=== PATIENT | female | born 1970 | race Caucasian/White ===

== ENCOUNTER 2020-01-03 17:04 | Emergency (ER) | payer BC, SELFPAY ==
--- NOTE | ~2020-01-03 | XR_ITS ---
EXAMINATION: XR foot RT min 3V DATE: 01/03/2020 17:23 INDICATION: Right foot pain TECHNIQUE: Dorsoplantar, lateral, and 2 oblique views of the right foot were obtained. COMPARISON: None. FINDINGS: There is no fracture, dislocation, or subluxation. Soft tissue swelling is seen in the late ral foot extending into the fifth toe. The joint spaces are normal. Dorsal and plantar calcaneal enth esophytes are noted. IMPRESSION: 1. Lateral soft tissue swelling of the foot without acute osseous abnormality. Reviewed, dictated and finalized at location A. LANCE ARTIST
[2020-01-03 17:10] VITALS: BP 144/78; PULSE 86; RESP 16; TEMP 37.1; O2SAT 99
--- NOTE | 2020-01-03 17:11 | ED.GENADULT ---
HPI - General Adult General Chief complaint: Extremity Injury, Lower Stated complaint: INJURED R FOOT Time Seen by Provider: 01/03/20 17:12 Source: patient Mode of arrival: ambulatory Limitations: no limitations History of Present Illness HPI narrative: 49-year-old female patient presents to the [facility] with complaints of right foot pain. Patient states earlier today she was camping and states that her stairs at her camper on one of her doors was not out and went to go out the door and fell about 2-1/2 to 3 feet from the camper onto the ground. Patient states she is having lateral right side of foot pain. Patient states she did soak it in some Epson salts as well as taking Advil prior to arrival. Related Data Home Medications Medication Instructions Recorded Confirmed ascorbic acid (vitamin C) 1,000 mg 1 gm PO DAILY 09/23/19 11/30/19 tablet calcium carbonate 600 mg calcium 600 mg PO DAILY 09/23/19 11/30/19 (1,500 mg) tablet cetirizine 10 mg capsule 10 mg PO DAILY 09/23/19 11/30/19 cholecalciferol (vitamin D3) 125 125 mcg PO DAILY 09/23/19 11/30/19 mcg (5,000 unit) capsule omega-3 fatty acids-fish oil 360 1 cap PO DAILY 09/23/19 11/30/19 mg-1,200 mg capsule Allergies Allergy/AdvReac Type Severity Reaction Status Date / Time No Known Allergies Allergy Verified 01/03/20 17:11 Review of Systems Review of Systems: Narrative: CONSTITUTIONAL: Denies fever, chills, or sweats. EYES: Denies visual changes, redness, or discharge. ENT: Denies rhinorrhea, congestion, sore throat, or otalgia. CARDIOVASCULAR: Denies chest pain, palpitations, or edema. RESPIRATORY: Denies cough or dyspnea. GASTROINTESTINAL: Denies abdominal pain, nausea, vomiting, or diarrhea. GENITOURINARY: Denies dysuria or hematuria. SKIN: Denies rash or itching. MUSCULOSKELETAL: Denies back pain, joint pain, or myalgia. Positive right foot pain NEUROLOGIC: Denies headache, numbness, or weakness. PSYCHIATRIC: Denies anxiety or depression. [facility] Past Medical History Medical History Hyperlipidemia with target LDL less than 160 Seborrheic dermatitis of scalp Surgical History Surgical History History of endometrial ablation Family History Family History Grandparent Diabetes mellitus Depression Hypertension Family history of cardiovascular disease Cerebrovascular accident Malignant neoplasm of prostate Family history of malignant neoplasm of uterus Father Hypertension Other Family history of thyroid disease Social History Social History Smoking status: Never smoker Alcohol intake: current Comments At the time of my signature I agree with nursing past medical history, surgical, social, and family history. There is no relevant family history pertinent to the presenting complaint. Exam Narrative: Exam Narrative: GENERAL: Well-appearing, well-nourished, and in no acute distress. HEAD: Normocephalic, atraumatic. EYES: PERRLA and EOMI. ENT: Nares clear, no rhinorrhea or epistaxis. Mucous membranes moist. NECK: Supple. No lymphadenopathy CHEST: Clear to auscultation. No respiratory distress. HEART: Regular rate and rhythm. No murmur heard. Normal peripheral pulses. ABDOMEN: Soft, nontender, nondistended, normal active bowel sounds. EXTREMITIES: Patient unable to bear weight and has pain with ambulation of the right foot. Right foot does have some swelling around the lateral malleolus area with tenderness noted to this area.. The R foot is without obvious asymmetry or deformity when compared to the L foot. No bony step-off, nontender to palpation over the toes, midfoot or hindfoot or sole. Normal plantar/dorsiflexion, inversion/eversion. Distal motor and neurovascular status are intact SKIN: Warm, dry, no rash. MAT
== END 2020-01-03 17:43 | disposition home or self-care (01) ==
PROVIDERS: Emergency Provider Nurse Practitioner Family; PCP Family Medicine
DX: S93.401A Sprain of unspecified ligament of right ankle, initial encounter (principal); W17.89XA Other fall from one level to another, initial encounter; E78.5 Hyperlipidemia, unspecified
CPT/HCPCS: 73630; 99213; G0463

== ENCOUNTER 2020-12-19 00:05 | Day surgery (SDC) | payer BC, SELFPAY ==
[2020-12-05 13:41] VITALS: BMI 32.5
[2020-12-19 10:18] VITALS: BP 126/75; PULSE 76; RESP 18; TEMP 36.8; O2SAT 100
--- NOTE | 2020-12-19 10:27 | P.CONGI_ITS ---
Assessment and Plan Assessment and plan (1) Colon cancer screening: Code(s): Z12.11 - Encounter for screening for malignant neoplasm of colon Status: Acute Assessment and Plan: Patient presents for screening colonoscopy. Further recommendations will be given after endoscopy. GI Consult Note Consult date/time: 12/19/20 10:27 HPI: Keisha Dent is a 50 year old female Presents for screening colonoscopy. Patient states her current weight appetite and bowel movements are normal. She denies abdominal pain. She has had no bleeding. Family history is noncontributory. Patient presents today for neoplasia screening colonoscopy. Review of Systems Review of Systems: All systems reviewed & are unremarkable except as noted in HPI and below PMFSH Past Medical History Medical History Hyperlipidemia with target LDL less than 160 Seborrheic dermatitis of scalp Surgical History Surgical History History of endometrial ablation Family History Family History Grandparent Diabetes mellitus Depression Hypertension Family history of cardiovascular disease Cerebrovascular accident Malignant neoplasm of prostate Family history of malignant neoplasm of uterus Father Hypertension Other Family history of thyroid disease Social History Social History Smoking status: Never smoker Alcohol intake: current Alcohol use details: socially Substance use: never Substance use type: does not use Living arrangements: with family Spiritual care concerns: No Meds Home Medications and Allergies Home Medications Medication Instructions Recorded Confirmed Type ascorbic acid (vitamin C) 1,000 mg 1 gm PO DAILY 09/23/19 12/05/20 History tablet calcium carbonate 600 mg calcium 600 mg PO DAILY 09/23/19 12/05/20 History (1,500 mg) tablet cetirizine 10 mg capsule 10 mg PO DAILY 09/23/19 12/05/20 History omega-3 fatty acids-fish oil 360 1 cap PO DAILY 09/23/19 12/05/20 History mg-1,200 mg capsule cyanocobalamin (vitamin B-12) 1,000 mcg PO DAILY 10/06/20 12/05/20 History 1,000 mcg capsule vitamin B complex 1 tablet PO DAILY 10/06/20 12/05/20 History Allergies Allergy/AdvReac Type Severity Reaction Status Date / Time No Known Allergies Allergy Verified 12/19/20 10:17 Vital Signs Vital Signs - 24 hr 12/19/20 10:18 Temperature 98.3 F Pulse Rate 76 Respiratory Rate 18 Blood Pressure 126/75 Pulse Oximetry 100 Exam Narrative: Physical exam reveals patient be alert. Vital signs stable. HEENT exam is unremarkable. Patient is anicteric. Lungs are clear to auscu ltation and percussion. Heart is without murmur or extra sounds. Abdominal exam bowel sounds are present soft nontender with no organomegaly. Digital external rectal exam is normal.
[2020-12-19] MEDS: LACTATED RINGERS 1,000 ML 150 ML IV CONT (10:29)
--- NOTE | 2020-12-19 10:51 | WPDANESEPPF ---
Anes - Initial Pre Proc Eval Procedure: Operation Date: 12/19/20 11:00 Proposed Procedures p Screening Colonoscopy - Lazaro Feliciano MD Date/Time: 12/19/20 10:51 Surgeon: Lazaro Feliciano MD Pre Op Diagnosis: neoplasm screening Patient Data Age: 50 Gender: F Height: 1.65 m Weight: 86.9 kg Last Vital Signs Temp 98.3 F 12/19/20 10:18 Pulse 76 12/19/20 10:18 Resp 18 12/19/20 10:18 BP 126/75 12/19/20 10:18 Pulse Ox 100 12/19/20 10:18 Allergies Allergy/AdvReac Type Severity Reaction Status Date / Time No Known Allergies Allergy Verified 12/19/20 10:17 Home Medications Medication Instructions Recorded Confirmed Type ascorbic acid (vitamin C) 1,000 mg 1 gm PO DAILY 09/23/19 12/05/20 History tablet calcium carbonate 600 mg calcium 600 mg PO DAILY 09/23/19 12/05/20 History (1,500 mg) tablet cetirizine 10 mg capsule 10 mg PO DAILY 09/23/19 12/05/20 History omega-3 fatty acids-fish oil 360 1 cap PO DAILY 09/23/19 12/05/20 History mg-1,200 mg capsule cyanocobalamin (vitamin B-12) 1,000 mcg PO DAILY 10/06/20 12/05/20 History 1,000 mcg capsule vitamin B complex 1 tablet PO DAILY 10/06/20 12/05/20 History Patient hx anesthesia problems: none Family hx anesthesia problems: none Results Review: All pre-operative results and documents have been reviewed as part of the pre-operative evaluation. [facility] Past Medical History Medical History Hyperlipidemia with target LDL less than 160 Seborrheic dermatitis of scalp Surgical History Surgical History History of endometrial ablation Family History Family History Grandparent Diabetes mellitus Depression Hypertension Family history of cardiovascular disease Cerebrovascular accident Malignant neoplasm of prostate Family history of malignant neoplasm of uterus Father Hypertension Other Family history of thyroid disease Social History Social History (Reviewed 10/06/20 @ 11:37 by Carmen Coronado [facility] Smoking status: Never smoker Alcohol intake: current Alcohol use details: socially Substance use: never Substance use type: does not use Living arrangements: with family Spiritual care concerns: No Anes - Eval Final PreProcedure Day of Procedure 12/19/20 10:51 Patient weight: obese Heart: regular rate and rhythm Lungs: clear to auscultation Airway: Mallampati scale class II Neurological: alert and oriented Last oral intake: >/= 8 hours ASA classification: II Emergent: no Anesthetic plan: proceed Anesthesia type and monitoring: general GIVS and standard monitoring Results Review: All pre-operative results and documents have been reviewed as part of the pre-operative evaluation. Informed Consent: The patient's anesthetic plan and its attendant risks and benefits were discussed with the patient/family/POA. Questions were solicited and answers provided to the satisfaction of the patient/family/POA.
[2020-12-19 11:16] VITALS: BP 108/70; PULSE 72; RESP 17; O2SAT 99
[2020-12-19 11:26] VITALS: BP 124/71; PULSE 73; RESP 23; O2SAT 100
[2020-12-19 11:36] VITALS: BP 129/73; PULSE 65; RESP 16; O2SAT 100
== END 2020-12-19 11:41 | disposition home or self-care (01) ==
PROVIDERS: PCP Family Medicine; Visit Provider Internal Medicine Gastroenterology
PROC: 0DJD8ZZ Inspection of Lower Intestinal Tract, Via Natural or Artificial Opening Endoscopic (ICD-10-PCS; CPT 45378; principal; 2020-12-19 11:00)
DX: Z12.11 Encounter for screening for malignant neoplasm of colon (principal); K63.5 Polyp of colon; E78.5 Hyperlipidemia, unspecified; L21.9 Seborrheic dermatitis, unspecified; E66.9 Obesity, unspecified; Z68.31 Body mass index [BMI] 31.0-31.9, adult
CPT/HCPCS: 45385; 88305; J2704; J7120

== ENCOUNTER → 2022-06-05 07:35 | Outpatient (CLI) | payer BC, SELFPAY ==
--- NOTE | ~2022-06-05 | US_ITS ---
US right upper quadrant INDICATION: Elevated liver enzymes. PROCEDURE: Realtime right upper abdominal ultrasound. COMPARISON: No prior studies for comparison. FINDINGS: The pancreas is normal without focal mass or pancreatic ductal dilation. Liver echotexture is normal without focal mass or intrahepatic biliary dilatation. There is normal directional flow i n the portal vein. There is gallbladder sludge. No definite stones, gallbladder wall thickening or pericholecystic fluid . Common bile duct measures 5 mm. No sonographic Abdullahi's sign. IMPRESSION: 1: Gallbladder sludge. Reviewed, dictated and finalized at location L. IMPRESSION: 1: Gallbladder sludge.
== END ==
PROVIDERS: PCP Family Medicine
DX: R74.01 Elevation of levels of liver transaminase levels (principal); K82.9 Disease of gallbladder, unspecified
CPT/HCPCS: 76705

== ENCOUNTER 2023-11-11 08:11 | Emergency (ER) | payer BC, SELFPAY ==
--- NOTE | 2023-11-11 08:15 | ED.EYEPROB ---
HPI - Eye Problem General Chief complaint: Eye Problems Stated complaint: [place] [facility] Time Seen by Provider: 11/11/23 08:40 Source: patient, RN notes reviewed and old records reviewed Mode of arrival: ambulatory Limitations: no limitations History of Present Illness HPI Narrative: 53-year-old female presents to the [facility] complaints left eye redness. Patient states that she went to take her contact lens out at 2:00 a.m. Saturday morning. Went to try to put it back in and had discomfort to the eye. Denies any change in vision. Has been watering. Last tDap 11/05/22 Onset (ago): day(s) (1) Related Data Patient tetanus UTD: Yes (11/17) Home Medications Medication Instructions Recorded Confirmed ascorbic acid (vitamin C) 1,000 mg 1 gm PO DAILY 09/23/19 11/11/23 tablet calcium carbonate 600 mg PO DAILY 09/23/19 11/11/23 cetirizine 10 mg capsule (Zyrtec) 10 mg PO DAILY 09/23/19 11/11/23 cyanocobalamin (vitamin B-12) 1,000 mcg PO DAILY 10/06/20 11/11/23 1,000 mcg capsule vitamin B complex 1 tablet PO DAILY 10/06/20 11/11/23 black cohosh 200 mg capsule 200 mg PO DAILY 07/16/23 11/11/23 Allergies Allergy/AdvReac Type Severity Reaction Status Date / Time No Known Allergies Allergy Verified 11/11/23 08:35 Review of Systems Review of Systems: All systems reviewed & are unremarkable except as noted in HPI and below Constitutional: Constitutional: Reports no additional constitutional complaints Eyes: Eyes: Reports as per HPI, Denies change in vision, Reports eye discharge (Clear), Reports irritation, Denies loss of vision and Reports eye pain ENT: Reports system reviewed and no additional complaints, except as documented Musculoskeletal: Musculoskeletal: Reports no additional musculoskeletal complaints Integumentary/Breasts: Skin/Breast: Reports system reviewed and no additional complaints, except as docu Neurologic: Reports system reviewed and no additional complaints, except as documented Psychiatric: Psychiatric: Reports no additional psychiatric complaints Allergic/Immunologic: Allergic/Immunologic: Reports no additional allergic/immunologic complaints PMFSH Past Medical History Medical History Hyperlipidemia with target LDL less than 160 Seborrheic dermatitis of scalp Surgical History Surgical History History of endometrial ablation Family History Family History Grandparent Diabetes mellitus Depression Hypertension Family history of cardiovascular disease Cerebrovascular accident Malignant neoplasm of prostate Family history of malignant neoplasm of uterus Father Hypertension Other Family history of thyroid disease Social History Social History Smoking status: Never smoker Alcohol intake: current Alcohol use details: socially Substance use: never Substance use type: does not use Lack of Transportation: No Lack of Food: Never True Current Housing: I Have Housing Difficulty Paying Gas/Electric Bills: No Difficulty Paying for Meds: No Currently Unemployed: Decline to Answer Education: Decline to Answer Difficulty w/ Childcare or Family Care: Decline to Answer Living arrangements: with family Spiritual care concerns: No Comments At the time of my signature, I reviewed and agree with the nursing past medical, surgical, social, and family history. There is no relevant family history pertinent to the patient complaint. Exam Const: General: cooperative, healthy appearing, comfortable, no acute distress, well developed, alert and well nourished Nutritional Appearance: well nourished Orientation/consciousness: patient oriented x3 Limitations: no limitations HENMT: Head: normal to inspection Ears: hearing grossly normal bilaterally and application tester
[2023-11-11 08:27] VITALS: BP 139/78; PULSE 82; RESP 16; TEMP 37.3; O2SAT 99
== END 2023-11-11 08:56 | disposition home or self-care (01) ==
PROVIDERS: Emergency Provider Nurse Practitioner; PCP Family Medicine
DX: S05.02XA Injury of conjunctiva and corneal abrasion without foreign body, left eye, initial encounter (principal); X58.XXXA Exposure to other specified factors, initial encounter; E78.5 Hyperlipidemia, unspecified
CPT/HCPCS: 99213; A9270; G0463

== ENCOUNTER 2024-04-16 15:28 | Outpatient (CLI) | payer BC, SELFPAY ==
--- NOTE | ~2024-04-16 | XR_ITS ---
EXAMINATION: XR lumbar spine 2-3V DATE: 04/16/2024 15:45 INDICATION: Dorsalgia, unspecified. TECHNIQUE: 3 views of lumbar spine including standing views were obtained. COMPARISON: None. FINDINGS: There is 8 degrees levocurvature of lumbar spine. Vertebral body heights are normal. There is mildly decreased disc height at L3-L4. There are endplate osteophytes at all levels. There is mult ilevel [id number] facet joint osteoarthritis. IMPRESSION: 1. Mild lumbar spondylosis. Reviewed, dictated and finalized at location A. MAKER IMPRESSION: 1. Mild lumbar spondylosis.
== END 2024-04-16 15:29 | disposition home or self-care (01) ==
LOC: GOSHIMG 15:28
PROVIDERS: PCP Family Medicine; Visit Provider Student in an Organized Health Care Education/Training Program
DX: M47.816 Spondylosis without myelopathy or radiculopathy, lumbar region (principal)
CPT/HCPCS: 72100